=== PATIENT | male | born 1940 | race Two or more races ===

== ENCOUNTER 2023-06-04 15:49 | Emergency (ER) | payer OTHER ==
[~2023-06-04] VITALS: Ht 175.3 cm; Wt 81.2 kg
[~2023-06-04 15:49] MED LIST: LACT10SO3 PO
[2023-06-04] MEDS ORDERED: ATROPINE SULF 1 MG/10ml SYR IM ONE (15:50)
[2023-06-04] MEDS ORDERED: SODIUM BICARBONATE 8.4% INJ 50ML SYRINGE IV ONE (15:50)
[2023-06-04] MEDS ORDERED: EPINEPHrine HCL 1 MG/10 ML SYRG IV ONE (15:50)
[2023-06-04] MEDS ORDERED: SODIUM CHLORIDE 0.9% 1,000 ML IV ONE ×3 (16:45→19:30)
[2023-06-04 17:00] LABS: Basophils # (auto) 0 10 ^3/uL (0-0.2); Basophils % (auto) 0.2 % (0.0-2.0); Eosinophils # (auto) 0 10 ^3/uL (0-0.8); Eosinophils % (auto) 0.1 % (0.0-7.0); Hematocrit 39.1 % (41.0-53.0); Hemoglobin 12.6 g/dL (13.5-17.5); Lymphocytes # (auto) 0.9 10 ^3/uL (0.4-5.4); Lymphocytes % (auto) 5.5 % (10.0-50.0); Mean Corpuscular Hemoglobin 28.1 pg (28.0-32.0); Mean Corpuscular Hgb Conc. 32.2 g/dL (32.0-36.0); Mean Corpuscular Volume 87.4 fL (80.0-100.0); Monocytes # (auto) 1.5 10 ^3/uL (0-1.3); Monocytes % (auto) 9.2 % (0.0-12.0); Neutrophils # (auto) 13.5 10 ^3/uL (1.6-8.6); Nucleated Red Blood Cells % 0.2 %; Red Blood Cells 4.48 10^6/uL (4.5-5.90); White Blood Cell 15.8 10^3/uL (4.4-10.8)
[2023-06-04 17:18] LABS: Alanine Aminotransferase 15 U/L (7-40); Albumin 3.8 g/dL (3.2-4.8); Alkaline Phosphatase 122 U/L (46-116); Anion Gap 26 (5-15); Aspartate Aminotransferase 21 U/L (13-40); BUN/Creatinine Ratio 28.1 (10.0-20.0); Bilirubin, Total 0.5 mg/dL (0.2-1.0); Calcium 9.6 mg/dL (8.5-10.1); Chloride 97 mmol/L (98-107); Glucose 226 mg/dL (74-106); Potassium 4.4 mmol/L (3.5-5.1); Sodium 134 mmol/L (136-145); Total Protein 6.7 g/dL (5.7-8.2)
[2023-06-04 17:19] LABS: Carbon Dioxide 11 mmol/L (20-30)
[2023-06-04 17:21] LABS: Blood Urea Nitrogen 89 mg/dL (9-23)
[2023-06-04 18:15] VITALS: PULSE 94; RESP 34; O2SAT 91
[2023-06-04 19:33] VITALS: PULSE 94; RESP 30; TEMP 98; O2SAT 70
[2023-06-04] MEDS ORDERED: SUCCINYLCHOLINE CHLORIDE 20 MG/ML 10ML VIAL IV ONE (19:43)
[2023-06-04] MEDS ORDERED: ETOMIDATE (2MG/ML) 20ML VIAL IV ONE (19:44)
[2023-06-04 19:50] VITALS: O2SAT 100
[2023-06-04] MEDS ORDERED: MIDAZOLAM DRIP 50 mg/50mL 50 ML IV ONE (19:53)
[2023-06-04] MEDS ORDERED: EPINEPHrine HCL 250 ML IV ONE (20:08)
[2023-06-04 20:35] VITALS: BP 47/19; PULSE 35; RESP 14
== END 2023-06-04 20:58 ==
LOC: ER 15:49
DX: I46.9 Cardiac arrest, cause unspecified (principal); R10.84 Generalized abdominal pain; K59.00 Constipation, unspecified; R14.0 Abdominal distension (gaseous); I10 Essential (primary) hypertension; E78.5 Hyperlipidemia, unspecified; Z79.899 Other long term (current) drug therapy
CPT/HCPCS: 31500; 36415; 71045; 74176; 80053; 82962; 83880; 84484; 85025; 87040; 87070; 87205; 92950; 93005; 96360; 99291; J0171; J0330; J2250; J7030